=== PATIENT | male | born 1980 | race Caucasian/White ===

== ENCOUNTER 2018-07-06 09:11 | Inpatient (IN) | payer MEDICAID ==
[~2018-07-06] VITALS: Ht 154.9 cm; Wt 90.0 kg
[2018-07-06] MEDS ORDERED: SOD CHLORIDE 0.9% 1,000 ML IV STA (09:31)
[2018-07-06] MEDS ORDERED: KETOROLAC 30 MG INJ IV STA (09:31)
[2018-07-06] MEDS ORDERED: ONDANSETRON 4 MG INJ IV STA (09:31)
--- NOTE | 2018-07-06 12:14 | NUR ---
Procedure Ordered: CT ABD/PELV WITH IV CONTRAST Reason for Exam Today: ABD PAIN Previous Exams: Allergies: NKA Current Medications Taken: Glucophage ( ) Metformin ( ) Previous reaction to contrast media: Yes ( ) No ( ) : Yes ( ) No (X ) Asthma: Yes ( ) No ( X) Diabetes: Yes ( ) No (X ) Myeloma: Yes ( ) No ( X) Heart Disease: Yes ( ) No ( X) Cardiac Disease: Yes ( ) No (X ) Kidney Disease: Yes ( ) No (X ) Vascular Disease: Yes ( ) No (X ) Patient Teaching done: Yes ( ) No ( ) Epic Beacon Analyst Used: Yes ( ) No ( ) Name of Epic Beacon Analyst: Language Used: As part of the test requested by your doctor, contrast media may be injected into your vein while the x-rays are being taken. Occasionally, reactions from IV contrast may occur. The physician and staff of this hospital are trained to treat these reactions. Select the type of Contrast that will be given to patient: Isovue 300 ( ) Isovue 370 ( ) Visipaque ( ) Cystografin ( ) Gastrographin ( ) Redi-cat ( ) Volumen ( ) Amount of contrast to be given: [id number]: 100CC IV IV ( ) PO ( ) Date given: 07.06.17 Lab Values: BUN: 9 Creatinine: 0.63 Reason why contrast cannot be given: Location of patient pre-procedure: ED2 Location of patient post procedure: ED2
[2018-07-06] MEDS ORDERED: SOD CHLORIDE 0.9% 100 ML ONE (12:16)
[2018-07-06] MEDS ORDERED: IOHEXOL 300MG/ML 150 ML BTL ONE (12:16)
[2018-07-06] MEDS ORDERED: morphine 4 MG/ML VIAL IV STA (12:58)
[2018-07-06] MEDS ORDERED: PIPER-TAZO 3.375 GM IV (PMX) 100 ML IVPB ONE (13:00)
--- NOTE | 2018-07-06 13:03 | EN ---
Date/Time of Note Date/Time of Note DATE: 07/06/18 TIME: 13:02 ER Progress Note Patient seen in conjunction with CRESENCIO Porter. On exam, patient has right upper quadrant tenderness and a Chicas sign but is hemodynamically stable. Patient has appropriate bowel sounds with no peritoneal findings other than the right upper quadrant. Diagnostic tests were appreciated. Medications including pain medication and antibiotics and fluids were ordered. Consultations: Hospitalist was notified for admission. Surgical consultation was obtained. Disposition: Patient will be admitted to a medical surgical bed for cholecystitis and a small bowel obstruction. MIGEUL ROMERO Jul 06, 2018 13:03
--- NOTE | 2018-07-06 13:50 | NUR ---
NOTIFIED PATIENT ABT PATIENTS ADMISSION FOR ADMITTING ORDERS.
--- NOTE | 2018-07-06 13:55 | ERD ---
ER Documentation Chief Complaint Chief Complaint ap since last night HPI 38-year-old male presenting with abdominal pain times 1 day. Patient was seen yesterday all of you and told he had gallstones however pain is worsened and continued. He has had no vomiting but nausea. Last bowel movement was yesterday. He has some mild chest pain. He denies taking any medications for symptoms. Denies medical problems. NKDA. Surgical history denies. Social history denies ROS All systems reviewed and are negative except as per history of present illness. Allergies Allergies: Coded Allergies: No Known Allergy (Unverified , 07/06/18) PMhx/Soc Hx Alcohol Use: Yes (socially) Hx Substance Use: No Hx Tobacco Use: No Smoking Status: Never smoker FmHx Family History: No diabetes, No coronary disease, No other Physical Exam Vitals Vital Signs Date Temp Pulse Resp B/P (MAP) Pulse Ox O2 O2 Flow FiO2 Time Delivery Rate 07/06/18 98.1 61 18 160/79 99 09:18 (106) Physical Exam GENERAL: The patient is well-appearing, well-nourished, in no acute distress CHEST: Clear to auscultation bilaterally. There are no rales, wheezes or rhonchi. HEART: Regular rate and rhythm. No murmurs, clicks, rubs or gallops. No S3 or S4. ABDOMEN: Mildly distended abdomen tenderness to palpation in epigastric region. No distention. No organomegaly. No rebound tenderness. BACK: No midline or flank tenderness. Result Diagram: 07/06/18 0951 07/06/18 0951 Results 24 hrs Laboratory Tests Test 07/06/18 09:50 07/06/18 09:51 Urine Color YELLOW Urine Clarity CLEAR Urine pH 7.0 Urine Specific [place] 1.015 Urine Ketones NEGATIVE mg/dL Urine Nitrite NEGATIVE mg/dL Urine Bilirubin NEGATIVE mg/dL Urine Urobilinogen NEGATIVE mg/dL Urine Leukocyte Esterase 1+ Estefani/ul Urine Microscopic RBC 1 /HPF Urine Microscopic WBC 1 /HPF Urine Hemoglobin NEGATIVE mg/dL Urine Glucose NEGATIVE mg/dL Urine Total Protein NEGATIVE mg/dl White Blood Count 13.8 10^3/ul Red Blood Count 4.79 10^6/ul Hemoglobin 15.2 g/dl Hematocrit 44.8 % Mean Corpuscular Volume 93.5 fl Mean Corpuscular Hemoglobin 31.7 pg Mean Corpuscular Hemoglobin Concent 33.9 g/dl Red Cell Distribution Width 11.9 % Platelet Count 313 10^3/UL Mean Platelet Volume 9.1 fl Immature Granulocytes % 0.500 % Neutrophils % 78.9 % Lymphocytes % 13.3 % Monocytes % 6.3 % Eosinophils % 0.4 % Basophils % 0.6 % Nucleated Red Blood Cells % 0.0 /100WBC Immature Granulocytes # 0.070 10^3/ul Neutrophils # 10.9 10^3/ul Lymphocytes # 1.8 10^3/ul Monocytes # 0.9 10^3/ul Eosinophils # 0.1 10^3/ul Basophils # 0.1 10^3/ul Nucleated Red Blood Cells # 0.0 10^3/ul Sodium Level 139 mmol/L Potassium Level 3.9 mmol/L Chloride Level 98 mmol/L Carbon Dioxide Level 27 mmol/L Anion Gap 14 Blood Urea Nitrogen 9 mg/dl Creatinine 0.63 mg/dl Est Glomerular Filtrat Rate mL/min > 60 mL/min Glucose Level 128 mg/dl Calcium Level 9.9 mg/dl Total Bilirubin 0.2 mg/dl Direct Bilirubin 0.00 mg/dl Indirect Bilirubin 0.2 mg/dl Aspartate Amino Transf (AST/SGOT) 38 IU/L Alanine Aminotransferase (ALT/SGPT) 28 IU/L Alkaline Phosphatase 102 IU/L Total Protein 8.9 g/dl Albumin 4.9 g/dl Globulin 4.00 g/dl Albumin/Globulin Ratio 1.22 Lipase 283 U/L Current Medications Medications Dose Sig/Dana Start Time Status Last (Trade) Ordered Route PRN Stop Time Admin Dose Reason Admin Sodium 1,000 ml @ Q1H STAT 07/06/18 DC 07/06/18 Chloride 1,000 mls/hr IV 09:31 07/06/18 09:43 10:30 Ondansetron 4 mg ONCE STAT 07/06/18 DC 07/06/18 HCl (Zofran IV 09:31 07/06/18 09:43 Inj) 09:33 Ketorolac 30 mg ONCE STAT 07/06/18 DC 07/06/18 Tromethamine IV 09:31 07/06/18 09:43 (Toradol) 09:33 IV Flush 10 ml STK-MED 07/06/18 DC 07/06/18 (NS 10 ml) ONCE .ROUTE 12:16 07/06/18 12:27 12:17 Sodium 100 ml @ ud STK-MED 07/06/18 DC 07/06/18 Chloride ONCE .ROUTE 12:16 07/06/18 12:30 12:17 Iohexol 150 ml STK-MED 07/06/18 DC 07/06/18 (Omnipaque ONCE .ROUTE 12:16 07/06/18 12:30 300mg/ ml) 12:17 Piperacillin 100 ml @ ONCE ONCE 07/06/18 DC Sod/ 200 mls/hr IVPB 13:00 07/06/18 Tazobactam 13:29 Sod Morphine 4 mg ONCE STAT 07/06/18 DC Sulfate IV 12:58 07/06/18 (morphine) 12:59 Procedures/MDM DIAGNOSTIC IMAGING REPORT Patient: MARIAA BEAUCHAMP : 1980 Age: 38 Sex: M MR #: [id number] DOS: 07/06/18 0931 Ordering MD: SHAW SALAZAR PA-C Location: [facility] Room/Bed: PROCEDURE: CT Abdomen and pelvis with contrast. CLINICAL INDICATION: Abdominal pain TECHNIQUE: CT scan of the abdomen and pelvis with contrast was performed on a multidetector high-resolution CT scan. The patient was scanned following the u ncomplicated intravenous administration of 100 ml Omnipaque-300. Coronal and sagittal reformatted images were obtained from the axial source images. Standard CT of the abdomen pelvis with contrast protocols were performed. The total exam CTDI equals 19.32 mGy and the total exam DLP equals 1187.92 mGy- cm. One or more of the following dose reduction techniques were used: - Automated exposure control. - Adjustment of the mA and/or kV according to patient size. Use of iterative reconstruction technique. Dicom images are available COMPARISON: None. FINDINGS: Mild dilated fluid-filled loops of mid to proximal small bowel with mild wall thickening and enhancement extending into the left mid to lower abdomen with more normal caliber distal small bowel the exact transition zone not fully demonstrated consistent with mild partial mid to distal small bowel obstruction and enteritis. There diverticular changes of the transverse descending and proximal sigmoid colon but no CT evidence of diverticulitis. Remainder the colon is unremarkable. Small bowel and appendix unremarkable. No evidence of intra-abdominal free air, free fluid, abscesses or lymphadenopathy. Kidneys normal in size without calcified calculi or hydronephrosis bilaterally. In the lateral mid to inferior right kidney is a 1.7 cm cyst. No other intra renal masses bilaterally. No ureteral calcified calculi or dilatation. Distended otherwise unremarkable urinary bladder. Prostate unremarkable. The gallbladder is distended with multiple gallstones and mild gallbladder wall thickening. No biliary ductal dilation. Recommend clinical correlation and consideration of a right upper quadrant abdominal ultrasound. Diffuse hepatic fatty infiltration. No focal hepatic lesions. Spleen pancreas and adrenal glands unremarkable. Bilateral fat containing inguinal hernias without herniated bowel or strangul ation. Aorta unremarkable. Minimal dextrorotoscoliosis of the lower thoracic lumbar spine. No acute osseous findings or osteoblastic/osteolytic lesions. IMPRESSION: 1. Mild dilated fluid-filled loops of mid to proximal small bowel with mild wall thickening and enhancement extending into the left mid to lower abdomen with more normal-caliber distal small bowel exact transition zone not fully d emonstrated consistent with mild partial mid to distal small bowel obstruction and enteritis. 2. Diverticulosis of the transverse, descending and proximal sigmoid colon without CT evidence of diverticulitis. Unremarkable appendix. 3. Multiple gallstones and gallbladder wall thickening but no biliary ductal dilation demonstrated. Recommend clinical correlation and consideration of right upper quadrant abdominal ultrasound. 4. Right renal cyst. 5. Hepatic fatty infiltration. 6. Bilateral fat containing inguinal hernias without herniated bowel or strangulation. DIAGNOSTIC IMAGING REPORT Patient: MARIAA BEAUCHAMP : 1980 Age: 38 Sex: M MR #: [id number] DOS: 07/06/18 0931 Ordering MD: SHAW SALAZAR PA-C Location: [facility] Room/Bed: PROCEDURE: US Abdomen Right Upper Quadrant. CLINICAL INDICATION: Abdominal pain TECHNIQUE: Multiple real-time longitudinal and transverse images were acquired of the patient's right upper quadrant abdomen utilizing a curved array transducer. COMPARISON: None FINDINGS: Liver: The liver is normal in size with the sagittal diameter right lobe me asuring 15.5 cm. The liver appears moderately diffusely echogenic with no discrete focal lesion evident. There is normal directional flow of the main portal vein. Gallbladder: A 1.8 cm in maximal diameter sludge ball is identified within the gallbladder lumen. A 1.5 cm gallstone appears to be lodged within the gallbladder neck. Smaller stones are seen in the gallbladder lumen. The gallbladder wall is mildly thickened to 4.2 mm. Bile ducts: There is no significant intra or extrahepatic bile duct dilatation. No choledocholiths are seen within the visualized portions. The common bile duct measures 4.7 mm in cross diameter. Pancreas: The pancreas is largely obscured by bowel gas. Right kidney: Normal in echotexture and in size. The right kidney measures 11.7 cm in length. No mass, pathological calcification, or hydronephrosis is evident. Peritoneum: There is no free intraperitoneal fluid IMPRESSION: 1. There is cholelithiasis and a sludge ball is seen within the gallbladder l umen. The gallbladder wall is mildly thickened to 4.2 mm. Clinical correlation is indicated to exclude cholelithiasis. No bile duct dilatation is evident with the common bile duct measuring 4.7 mm in cross diameter. 2. The pancreas is obscured by bowel gas. 3. Normal sized diffusely fatty infiltrated liver with no focal lesion. 4. Normal appearing right kidney. 5. No free intraperitoneal fluid is evident. ER Course: 1 L normal saline, Toradol, morphine, Zosyn given in ED. Dr. Hoang evaluated patient at bedside given patient did have findings consistent with cholecystitis and SBO. Patient was stable and is transferred to [place] for admission. MDM: 38-year-old male presenting with abdominal pain. Patient's abdominal exam is concerning for cholecystitis and bowel obstruction. Patient is admitted for surgical consultation and higher level of care. Patient is admitted for high l evel care and is stable at the time of admission. All questions answered at time of admission. LASHAWN SALAZAR PA-C Jul 06, 2018 13:55
[2018-07-06 13:57] VITALS: BP 154/96; PULSE 77; RESP 20
[2018-07-06 13:59] VITALS: Ht 154.9 cm; Wt 90.0 kg
[2018-07-06] MEDS ORDERED: NACL 0.9% 3 ML SYG IV SCH (14:00)
[2018-07-06] MEDS ORDERED: MAGNESIUM HYDROXIDE 30ML CUP PO PRN (14:00)
[2018-07-06] MEDS ORDERED: hydrALAzine 20 MG INJ IV PRN (14:00)
[2018-07-06] MEDS ORDERED: ACETAMINOPHEN 325 MG TAB PO PRN (14:00)
[2018-07-06] MEDS ORDERED: ALBUTEROL/IPRATROPIUM (NEB) 3 ML AMP HHN PRN (14:00)
[2018-07-06] MEDS ORDERED: LORAZEPAM 2 MG INJ IV PRN (14:00)
[2018-07-06] MEDS ORDERED: NITROGLYCERIN (SL) 0.4 MG TAB SL PRN (14:00)
[2018-07-06] MEDS ORDERED: DOCUSATE SODIUM 100 MG CAP PO PRN (14:00)
[2018-07-06] MEDS ORDERED: ONDANSETRON 4 MG INJ IV PRN (14:00)
[2018-07-06] MEDS ORDERED: morphine 2 MG INJ IV PRN (14:00)
--- NOTE | 2018-07-06 14:15 | NUR ---
SPOKED WITH BRIGIDA WITH DR NAVARRO OFFICE AND INFO WAS GIVEN ABT THE CONSULTATION ORDER.
[2018-07-06] MEDS: SOD CHLORIDE 0.9% 1,000 ML IV SCH ×2 (14:20→23:30)
[2018-07-06] MEDS ORDERED: ACET500C5 PO (14:31)
[2018-07-06] MEDS: morphine SULFATE/PF (2 MG/2 ML) SYG IV PRN ×2 (14:51→21:13)
--- NOTE | 2018-07-06 15:25 | HP ---
Date/Time of Note Date/Time of Note DATE: 07/06/18 TIME: 15:19 Assessment/Plan VTE Prophylaxis SCD applied (from Nsg): No SCD contraindicated: other Pharmacological prophylaxis: heparin Lines/Catheters IV Catheter Type (from Nrsg): Peripheral IV Assessment/Plan Hospital Course Assessment and plan: 38-year-old male presenting with abdominal pain nausea vomiting with signs of SBO and cholecystitis #Abdominal pain: Likely secondary to combination of cholecystitis and SBO. Currently patient has not had any surgeries before. -Admit the patient, keep n.p.o. -Follow-up recommendations from the surgery team. Check TSH A1c lipid panel, continue IV fluids, pain control medications as needed, antiemetics -If distention worsens or pain worsens consider NG tube placement # GI ppx -PPI Result Diagram: 07/06/18 0951 07/06/18 0951 Results 24hrs Laboratory Tests Test 07/06/18 09:50 07/06/18 09:51 Prothrombin Time 12.6 Prothrombin Time Ratio 1.0 INR International Normalized Ratio 0.93 Activated Partial Thromboplast Time 33.7 Urine Color YELLOW Urine Clarity CLEAR Urine pH 7.0 Urine Specific [place] 1.015 Urine Ketones NEGATIVE Urine Nitrite NEGATIVE Urine Bilirubin NEGATIVE Urine Urobilinogen NEGATIVE Urine Leukocyte Esterase 1+ H Urine Microscopic RBC 1 Urine Microscopic WBC 1 Urine Hemoglobin NEGATIVE Urine Glucose NEGATIVE Urine Total Protein NEGATIVE Free Thyroxine 1.05 White Blood Count 13.8 H Red Blood Count 4.79 Hemoglobin 15.2 Hematocrit 44.8 Mean Corpuscular Volume 93.5 Mean Corpuscular Hemoglobin 31.7 Mean Corpuscular Hemoglobin Concent 33.9 Red Cell Distribution Width 11.9 Platelet Count 313 Mean Platelet Volume 9.1 Immature Granulocytes % 0.500 H Neutrophils % 78.9 H Lymphocytes % 13.3 L Monocytes % 6.3 Eosinophils % 0.4 Basophils % 0.6 Nucleated Red Blood Cells % 0.0 Immature Granulocytes # 0.070 H Neutrophils # 10.9 H Lymphocytes # 1.8 Monocytes # 0.9 Eosinophils # 0.1 Basophils # 0.1 Nucleated Red Blood Cells # 0.0 Sodium Level 139 Potassium Level 3.9 Chloride Level 98 Carbon Dioxide Level 27 Anion Gap 14 H Blood Urea Nitrogen 9 Creatinine 0.63 Est Glomerular Filtrat Rate mL/min > 60 Glucose Level 128 Calcium Level 9.9 Total Bilirubin 0.2 Direct Bilirubin 0.00 Indirect Bilirubin 0.2 Aspartate Amino Transf (AST/SGOT) 38 Alanine Aminotransferase (ALT/SGPT) 28 Alkaline Phosphatase 102 Total Protein 8.9 H Albumin 4.9 Globulin 4.00 H Albumin/Globulin Ratio 1.22 Lipase 283 HPI/ROS Admit Date/Time Admit Date/Time Jul 06, 2018 at 13:04 Hx of Present Illness 38-year-old male with no significant past medical history who presents with abdo melquiades pain. He states this pain has been going on for the last 3-4 days. He also had 2 days of nonbilious nonbloody vomiting symptoms as well as nausea. No upper or lower GI bleeding, no fevers or chills, no diarrhea constipation, no chest pain or shortness of breath. When he came in today he had imaging study performed, including a CT abdomen pelvis which showed: Mild dilated fluid-filled loops of mid to proximal small bowel with mild wall thickening and enhancement extending into the left mid to lower abdomen with more normal-caliber distal small bowel exact transition zone not fully demonstrated consistent with mild partial mid to distal small bowel obstruction and enteritis. Positive gallstones and gallbladder wall thickening also found. Patient also had a right upper quadrant ultrasound which showed:,cholelithiasis and a sludge ball is seen within the gallbladder lumen -signs of possible cholecystitis. I call was made out to the surgeon to come evaluate the patient as well. PMH/Family/Social Past Medical History Medical History: no pertinent history Medications Current Medications IV Flush (NS 3 ml) 3 ml PER PROTOCOL IV ; Start 07/06/18 at 14:00 Ondansetron HCl (Zofran Inj) 4 mg Q6H PRN IV NAUSEA AND/OR VOMITING; Start 07/06/18 at 14:00 Acetaminophen (Tylenol Tab) 650 mg Q6H PRN PO PAIN LEVEL 1-3 OR FEVER; Start 07/06/18 at 14:00 Acetaminophen/ Hydrocodone Bitart ([place] (5/325)) 1 tab Q6H PRN PO MODERATE PAIN LEVEL 4-6; Start 07/06/18 at 14:00 Docusate Sodium (Colace) 100 mg Q12H PRN PO CONSTIPATION; Start 07/06/18 at 14:00 Magnesium Hydroxide (Milk Of Mag) 30 ml DAILY PRN PO CONSTIPATION; Start 07/06/18 at 14:00 Lorazepam (Ativan) 0.5 mg Q6H PRN IV ANXIETY; Start 07/06/18 at 14:00 Sodium Chloride 1,000 ml @ 100 mls/hr Q10H IV Last administered on 07/06/18at 14:20; Admin Dose 100 MLS/HR; Start 07/06/18 at 13:49 Albuterol/ Ipratropium (Duoneb) 3 ml Q4H RESP THERAPY PRN HHN SHORTNESS OF BREATH; Start 07/06/18 at 14:00 Hydralazine HCl (Apresoline) 10 mg Q6H PRN IV ELEVATED BLOOD PRESSURE; Start 07/06/18 at 14:00 Nitroglycerin (Nitroglycerin (Sl Tab) 0.4 Mg) 1 tab Q5M PRN SL ANGINA; Start 07/06/18 at 14:00 Morphine Sulfate (morphine SULFATE (PF)) 2 mg Q4H PRN IV SEVERE PAIN LEVEL 7-10 Last administered on 07/06/18at 14:51; Admin Dose 2 MG; Start 07/06/18 at 14:30 Coded Allergies: No Known Allergy (Unverified , 07/06/18) Past Surgical History Past Surgical Hx: no surgical history Family History Significant Family History: no pertinent family hx Social History Alcohol Use: occasionally Smoking Status: Never smoker Drug Use: none Exam/Review of Systems Vital Signs Vitals Vital Signs Date Temp Pulse Resp B/P (MAP) Pulse Ox O2 O2 Flow FiO2 Time Delivery Rate 07/06/18 98.7 77 20 154/96 97 Room Air 13:57 (115) Exam Exam GENERAL: Lying in bed, alert, in mild distress HEENT: Pupils equal round reactive light, extraocular muscles are intact NECK: Supple CHEST: Clear to auscultation bilaterally. There are no rales, wheezes or rhonchi. HEART: Regular rate and rhythm. No murmurs, clicks, rubs or gallops. No S3 or S4. ABDOMEN: Mildly distended abdomen tenderness to palpation in epigastric region. No distention. No organomegaly. No rebound tenderness. M/S: No lower extremity edema bilaterally Neurologic: No focal deficits LUCIA VYAS Jul 06, 2018 15:25
[2018-07-06] MEDS ORDERED: PANTOPRAZOLE (EC) 40 MG TAB PO ONE (15:30)
--- NOTE | 2018-07-06 15:30 | NUR ---
COMPLETED ADMISSION ASSESSMENT.PATIENT WAS INSTRUCTED NPO EXCEPT MEDICATIONS.
--- NOTE | 2018-07-06 16:33 | NUR ---
ENDORSEMENT Report received at bedside from Ashley SCHULTE. Care board updated. Pt NPO and awaiting for Dr. Morales consult. Bed in lowest position and call light within reach.
--- NOTE | 2018-07-06 18:56 | NUR ---
END OF SHIFT NOTE Pt complains of abdominal pain Morphine IV given for pain by Ashley. Pt NPO except meds. Ambulates to toilet to void without assist. Steady on his feet. Urinal at bedside also. Bed in lowest position and call light within reach.
[2018-07-06 19:43] VITALS: BP 149/87; PULSE 82; RESP 18
--- NOTE | 2018-07-06 23:00 | NUR ---
Patient reported he is willing to wait for Dr. Morales to speak to him re: possibility of having surgery, not requesting diet modification anymore since IV fluid order has already been changed. Assured constant nursing staff availability and assistance. Needs assisted.
--- NOTE | 2018-07-07 00:22 | CONS ---
Date/Time of Note Date/Time of Note DATE: 07/07/18 TIME: 00:17 Assessment/Plan Assessment/Plan Assessment/Plan 8-year-old male presents with abdominal pain 3-4 days, nonbilious vomiting. Patient noted to have gallstones versus sludge in gallbladder with mild gallbladder wall thickening. LFTs normal no evidence of common bile duct stone or dilated common bile duct. Patient also noted to have findings on CT consistent with partial SBO with dilated fluid-filled mild thickening of proximal small bowel loops. Patient has no prior surgery and no reason for SBO possibility of SBO secondary to inflammation from gallbladder but this is somewhat unlikely. His LFTs are normal and only mild support for cholecystitis by ultrasound and CT we will obtain HIDA scan to assess for acute cholecystitis. In the meantime if patient has worsening dyspepsia or nausea will recommend insertion of NG tube bowel rest keeping patient n.p.o. and IV fluids. Surgery will follow. Result Diagram: 07/06/18 0951 07/06/18 0951 Results 24hrs Laboratory Tests Test 07/06/18 09:50 07/06/18 09:51 Prothrombin Time 12.6 Prothrombin Time Ratio 1.0 INR International Normalized Ratio 0.93 Activated Partial Thromboplast Time 33.7 Urine Color YELLOW Urine Clarity CLEAR Urine pH 7.0 Urine Specific [place] 1.015 Urine Ketones NEGATIVE Urine Nitrite NEGATIVE Urine Bilirubin NEGATIVE Urine Urobilinogen NEGATIVE Urine Leukocyte Esterase 1+ H Urine Microscopic RBC 1 Urine Microscopic WBC 1 Urine Hemoglobin NEGATIVE Urine Glucose NEGATIVE Urine Total Protein NEGATIVE Free Thyroxine 1.05 White Blood Count 13.8 H Red Blood Count 4.79 Hemoglobin 15.2 Hematocrit 44.8 Mean Corpuscular Volume 93.5 Mean Corpuscular Hemoglobin 31.7 Mean Corpuscular Hemoglobin Concent 33.9 Red Cell Distribution Width 11.9 Platelet Count 313 Mean Platelet Volume 9.1 Immature Granulocytes % 0.500 H Neutrophils % 78.9 H Lymphocytes % 13.3 L Monocytes % 6.3 Eosinophils % 0.4 Basophils % 0.6 Nucleated Red Blood Cells % 0.0 Immature Granulocytes # 0.070 H Neutrophils # 10.9 H Lymphocytes # 1.8 Monocytes # 0.9 Eosinophils # 0.1 Basophils # 0.1 Nucleated Red Blood Cells # 0.0 Sodium Level 139 Potassium Level 3.9 Chloride Level 98 Carbon Dioxide Level 27 Anion Gap 14 H Blood Urea Nitrogen 9 Creatinine 0.63 Est Glomerular Filtrat Rate mL/min > 60 Glucose Level 128 Calcium Level 9.9 Total Bilirubin 0.2 Direct Bilirubin 0.00 Indirect Bilirubin 0.2 Aspartate Amino Transf (AST/SGOT) 38 Alanine Aminotransferase (ALT/SGPT) 28 Alkaline Phosphatase 102 Total Protein 8.9 H Albumin 4.9 Globulin 4.00 H Albumin/Globulin Ratio 1.22 Lipase 283 Consultation Date/Type/Reason Admit Date/Time Jul 06, 2018 at 13:04 Date of Consultation: Jul 06, 2018 Type of Consult Surgical consult Reason for Consultation Abdominal pain, nausea vomiting SBO possible cholecystitis Requesting Provider: LUCIA VYAS Hx of Present Illness 38-year-old male who presented to the emergency room with 3-4-day history of increasing abdominal pain and 2-day history of nonbilious vomiting. Patient denies any similar symptoms to this in the past. Patient denies any past surgical history. On presentation to the emergency room patient presented with symptoms as noted above denied any fever chills. No other close contacts have been sick recently. Patient denies any diarrhea. On evaluation in the emergency room CAT scan and ultrasound were obtained which showed gallstones versus sludge of the gallbladder with mild gallbladder wall thickening. Of note there was also noted some moderately thickened dilated small bowel loops with transition point in the mid small bowel without obvious focal transition point. LFTs normal WBC 13,000 Past Medical History Medical History: no pertinent history Medications Current Medications IV Flush (NS 3 ml) 3 ml PER PROTOCOL IV ; Start 07/06/18 at 14:00 Ondansetron HCl (Zofran Inj) 4 mg Q6H PRN IV NAUSEA AND/OR VOMITING; Start 07/06/18 at 14:00 Acetaminophen (Tylenol Tab) 650 mg Q6H PRN PO PAIN LEVEL 1-3 OR FEVER; Start 07/06/18 at 14:00 Acetaminophen/ Hydrocodone Bitart ([place] (5/325)) 1 tab Q6H PRN PO MODERATE PAIN LEVEL 4-6; Start 07/06/18 at 14:00 Docusate Sodium (Colace) 100 mg Q12H PRN PO CONSTIPATION; Start 07/06/18 at 14:00 Magnesium Hydroxide (Milk Of Mag) 30 ml DAILY PRN PO CONSTIPATION; Start 07/06/18 at 14:00 Lorazepam (Ativan) 0.5 mg Q6H PRN IV ANXIETY; Start 07/06/18 at 14:00 Sodium Chloride 1,000 ml @ 100 mls/hr Q10H IV Last administered on 07/06/18at 14:20; Admin Dose 100 MLS/HR; Start 07/06/18 at 13:49 Albuterol/ Ipratropium (Duoneb) 3 ml Q4H RESP THERAPY PRN HHN SHORTNESS OF BREATH; Start 07/06/18 at 14:00 Hydralazine HCl (Apresoline) 10 mg Q6H PRN IV ELEVATED BLOOD PRESSURE; Start 07/06/18 at 14:00 Nitroglycerin (Nitroglycerin (Sl Tab) 0.4 Mg) 1 tab Q5M PRN SL ANGINA; Start 07/06/18 at 14:00 Morphine Sulfate (morphine SULFATE (PF)) 2 mg Q4H PRN IV SEVERE PAIN LEVEL 7-10 Last administered on 07/06/18at 21:13; Admin Dose 2 MG; Start 07/06/18 at 14:30 Allergies: Coded Allergies: No Known Allergy (Unverified , 07/06/18) Past Surgical History Past Surgical Hx: no surgical history Social History Alcohol Use: occasionally Smoking Status: Never smoker Drug Use: none Exam/Review of Systems Vital Signs Vitals Vital Signs Date Temp Pulse Resp B/P (MAP) Pulse Ox O2 O2 Flow FiO2 Time Delivery Rate 07/06/18 98.8 82 18 149/87 96 Room Air 19:43 (107) Intake and Output 07/06/18 07/06/18 07/07/18 1515:00 23:00 07:00 IntakeIntake Total 300 ml BalanceBalance 300 ml Exam Gastrointestinal: soft, nl liver, spleen, non-tender, ascites, bowel sounds, distended, firm, hepatomegaly, mass, rebound or guarding, splenomegaly, surgical scars, tender, other (Obese) Medications Medications Current Medications IV Flush (NS 3 ml) 3 ml PER PROTOCOL IV ; Start 07/06/18 at 14:00 Ondansetron HCl (Zofran Inj) 4 mg Q6H PRN IV NAUSEA AND/OR VOMITING; Start 07/06/18 at 14:00 Acetaminophen (Tylenol Tab) 650 mg Q6H PRN PO PAIN LEVEL 1-3 OR FEVER; Start 07/06/18 at 14:00 Acetaminophen/ Hydrocodone Bitart ([place] (5/325)) 1 tab Q6H PRN PO MODERATE PAIN LEVEL 4-6; Start 07/06/18 at 14:00 Docusate Sodium (Colace) 100 mg Q12H PRN PO CONSTIPATION; Start 07/06/18 at 14:00 Magnesium Hydroxide (Milk Of Mag) 30 ml DAILY PRN PO CONSTIPATION; Start 07/06/18 at 14:00 Lorazepam (Ativan) 0.5 mg Q6H PRN IV ANXIETY; Start 07/06/18 at 14:00 Sodium Chloride 1,000 ml @ 100 mls/hr Q10H IV Last administered on 07/06/18at 14:20; Admin Dose 100 MLS/HR; Start 07/06/18 at 13:49 Albuterol/ Ipratropium (Duoneb) 3 ml Q4H RESP THERAPY PRN HHN SHORTNESS OF BREATH; Start 07/06/18 at 14:00 Hydralazine HCl (Apresoline) 10 mg Q6H PRN IV ELEVATED BLOOD PRESSURE; Start 07/06/18 at 14:00 Nitroglycerin (Nitroglycerin (Sl Tab) 0.4 Mg) 1 tab Q5M PRN SL ANGINA; Start 07/06/18 at 14:00 Morphine Sulfate (morphine SULFATE (PF)) 2 mg Q4H PRN IV SEVERE PAIN LEVEL 7-10 Last administered on 07/06/18at 21:13; Admin Dose 2 MG; Start 07/06/18 at 14:30 EDD NAVARRO MD Jul 07, 2018 00:22
[2018-07-07] MEDS: SOD CHLORIDE 0.9% 1,000 ML IV SCH ×2 (00:57→09:52)
[2018-07-07] MEDS: morphine SULFATE/PF (2 MG/2 ML) SYG IV PRN ×2 (01:09→05:34)
[2018-07-07 02:00] VITALS: BP 142/75; PULSE 78; RESP 18
--- NOTE | 2018-07-07 04:55 | NUR ---
END OF SHIFT: PT REMAINS ALERT AND ORIENTED THIS SHIFT. PT STILL NPO FOR SBO AND SBD PAIN. PT CONT TO HAVE MORPHINE ORDERED. DR. NAVARRO CAME LATE LAST NIGHT AND WANTED TO KEEP PT NPO FOR HIDA SCAN FOR TODAY, WILL CONT PLAN OF CARE FOR PT.
[2018-07-07 07:33] VITALS: BP 125/78; PULSE 77; RESP 18
--- NOTE | 2018-07-07 10:00 | NUR ---
LEFT TO NUCLEAR MED FOR HIDA SCAN
--- NOTE | 2018-07-07 12:00 | NUR ---
BACK FROM NUCLEAR MED AND FFUP SCAN SCHEDULED AT 1400
[2018-07-07 14:01] VITALS: BP 136/88; PULSE 83; RESP 20
--- NOTE | 2018-07-07 14:48 | PN ---
Date/Time of Note Date/Time of Note DATE: 07/07/18 TIME: 14:46 Assessment/Plan VTE Prophylaxis Risk score (from Ns)>0 risk: 1 SCD applied (from Nsg): Yes Pharmacological prophylaxis: other Lines/Catheters IV Catheter Type (from Nrsg): Peripheral IV Assessment/Plan Hospital Course S: Patient still n.p.o., presently getting the second portion of his HIDA scan performed. Seen by surgery team earlier. Per nursing staff patient is passing gas. O: VS - see below PE: -Unable to be performed presently because the patient is off the floor at procedure Assessment and plan: 38-year-old male presenting with abdominal pain nausea vomiting with signs of SBO and possible cholecystitis. #Abdominal pain: Likely secondary to combination of possible cholecystitis and SBO. Currently patient has not had any surgeries before. Appreciate surgery consult -For now continue to keep n.p.o. -Follow-up results of the HIDA scan. Follow-up surgery recommendations. - continue IV fluids, pain control medications as needed, antiemetics -If distention worsens or pain worsens consider NG tube placement # GI ppx -PPI Result Diagram: 07/07/18 0434 07/07/18 0434 Results 24hrs Laboratory Tests Test 07/07/18 04:34 White Blood Count 9.0 # Red Blood Count 4.36 L Hemoglobin 14.1 Hematocrit 40.7 L Mean Corpuscular Volume 93.3 Mean Corpuscular Hemoglobin 32.3 Mean Corpuscular Hemoglobin Concent 34.6 Red Cell Distribution Width 12.0 Platelet Count 301 Mean Platelet Volume 9.2 Immature Granulocytes % 0.400 Neutrophils % 75.7 Lymphocytes % 12.7 L Monocytes % 9.1 Eosinophils % 1.4 Basophils % 0.7 Nucleated Red Blood Cells % 0.0 Immature Granulocytes # 0.040 H Neutrophils # 6.8 Lymphocytes # 1.1 Monocytes # 0.8 Eosinophils # 0.1 Basophils # 0.1 Nucleated Red Blood Cells # 0.0 Sodium Level 137 Potassium Level 3.9 Chloride Level 99 Carbon Dioxide Level 29 Anion Gap 9 # Blood Urea Nitrogen 9 Creatinine 0.71 Est Glomerular Filtrat Rate mL/min > 60 Glucose Level 103 Hemoglobin A1c 5.8 Calcium Level 9.0 Phosphorus Level 4.1 Magnesium Level 2.1 Triglycerides Level 172 H Cholesterol Level 224 H LDL Cholesterol, Calculated 142 HDL Cholesterol 48 Cholesterol/HDL Ratio 4.6 Thyroid Stimulating Hormone (TSH) 1.130 Exam/Review of Systems Vital Signs Vitals Vital Signs Date Temp Pulse Resp B/P (MAP) Pulse Ox O2 O2 Flow FiO2 Time Delivery Rate 07/07/18 98.5 83 20 136/88 95 14:01 (104) 07/07/18 Room Air 07:33 Intake and Output 07/06/18 07/06/18 07/07/18 1515:00 23:00 07:00 IntakeIntake Total 300 ml 1100 ml OutputOutput Total 850 ml BalanceBalance 300 ml 250 ml Medications Medications Current Medications IV Flush (NS 3 ml) 3 ml PER PROTOCOL IV ; Start 07/06/18 at 14:00 Ondansetron HCl (Zofran Inj) 4 mg Q6H PRN IV NAUSEA AND/OR VOMITING; Start 07/06/18 at 14:00 Acetaminophen (Tylenol Tab) 650 mg Q6H PRN PO PAIN LEVEL 1-3 OR FEVER; Start 07/06/18 at 14:00 Acetaminophen/ Hydrocodone Bitart ([place] (5/325)) 1 tab Q6H PRN PO MODERATE PAIN LEVEL 4-6; Start 07/06/18 at 14:00 Docusate Sodium (Colace) 100 mg Q12H PRN PO CONSTIPATION; Start 07/06/18 at 14:00 Magnesium Hydroxide (Milk Of Mag) 30 ml DAILY PRN PO CONSTIPATION; Start 07/06/18 at 14:00 Lorazepam (Ativan) 0.5 mg Q6H PRN IV ANXIETY; Start 07/06/18 at 14:00 Sodium Chloride 1,000 ml @ 100 mls/hr Q10H IV Last administered on 07/07/18at 09:52; Admin Dose 100 MLS/HR; Start 07/06/18 at 13:49 Albuterol/ Ipratropium (Duoneb) 3 ml Q4H RESP THERAPY PRN HHN SHORTNESS OF BREATH; Start 07/06/18 at 14:00 Hydralazine HCl (Apresoline) 10 mg Q6H PRN IV ELEVATED BLOOD PRESSURE; Start 07/06/18 at 14:00 Nitroglycerin (Nitroglycerin (Sl Tab) 0.4 Mg) 1 tab Q5M PRN SL ANGINA; Start 07/06/18 at 14:00 Morphine Sulfate (morphine SULFATE (PF)) 2 mg Q4H PRN IV SEVERE PAIN LEVEL 7-10 Last administered on 07/07/18at 05:34; Admin Dose 2 MG; Start 07/06/18 at 14:30 LUCIA VYAS Jul 07, 2018 14:48
--- NOTE | 2018-07-07 15:15 | NUR ---
2ND SCAN COMPLETED.
--- NOTE | 2018-07-07 16:17 | NUR ---
EOSS: AA,ORIENTED X4 ,PT SPEAKS [place] ONLY.MAINTAINED ON NPO EXCEPT MEDS.PATIENT PAIN SCALED 1-3/10 AND PREFERS NOT TO TAKE PAIN MEDICATIONS.NO REPORT OF NAUSEA,VOMITING NOTED,+ FLATUS.PT TO CONT WITH TREATMENT PLAN.
[2018-07-07 19:10] VITALS: BP 151/98; PULSE 93; RESP 20
--- NOTE | 2018-07-07 20:15 | NUR ---
Dr. Werner notified patient is upset and is demanding to speak to a doctor. As per patient he has been waiting all day for day Hospitalist to come and see him since he has alot of queries and concerns re: explanation of all his test results for this admission, plan for surgery, request for diet modification and his medical management. instructed he won't come to speak to patient and RN needs to contact Dr. Fisher through [employer] danii. theatre director also made aware.
--- NOTE | 2018-07-07 21:15 | NUR ---
Dr. Fisher called back RN -and also spoke to the patient over the speakerphone. METAL NEUTRALIZER interpreted communications in Persian @bedside. Inquiries answered by physician but instructed RN to call the surgeon tonight with regard to patient's request if current diet can be modified and for explanation of all imaging test result done in-patient including HIDA scan. Wants to be able to drink some liquids at least if surgeon doesn't plan to do surgery. MD explained to patient he came twice to see the patient today but patient was off-unit for tests. Telephone order made by MD for modification of current IV fluid order; will initiate once patient is done having a shower tonight. [employer] hcm consultant made aware.
[2018-07-07] MEDS ORDERED: LORAZEPAM 4 MG/ML VIAL IV PRN (22:00)
[2018-07-07] MEDS ORDERED: DEXTROSE 5%-0.45% NACL 1,000 ML IV SCH (22:00)
[2018-07-08] VITALS (21 sets, daily range): BP systolic 111–145; BP diastolic 64–90; PULSE 82–104; RESP 11–21
[2018-07-08] MEDS: morphine SULFATE/PF (2 MG/2 ML) SYG IV PRN (00:58)
--- NOTE | 2018-07-08 02:45 | PN ---
Date/Time of Note Date/Time of Note DATE: 07/08/18 TIME: 02:42 Subjective Surgical progress note Objective Vitals Vital Signs Date Temp Pulse Resp B/P (MAP) Pulse Ox O2 O2 Flow FiO2 Time Delivery Rate 07/07/18 97.9 93 20 151/98 96 19:10 (115) 07/07/18 Room Air 07:33 Intake and Output 07/07/18 07/07/18 07/08/18 1515:00 23:00 07:00 IntakeIntake Total 600 ml 220 ml OutputOutput Total 300 ml 600 ml BalanceBalance 300 ml -380 ml Patient with moderate tenderness right upper quadrant positive Chicas sign consistent with acute cholecystitis Results Result Diagram: 07/07/18 0434 07/07/18 0434 Imaging HIDA scan performed today shows nonvisualization of the gallbladder after 80 minutes consistent with acute cholecystitis Medications Medications Current Medications IV Flush (NS 3 ml) 3 ml PER PROTOCOL IV ; Start 07/06/18 at 14:00 Ondansetron HCl (Zofran Inj) 4 mg Q6H PRN IV NAUSEA AND/OR VOMITING; Start 07/06/18 at 14:00 Acetaminophen (Tylenol Tab) 650 mg Q6H PRN PO PAIN LEVEL 1-3 OR FEVER; Start 07/06/18 at 14:00 Acetaminophen/ Hydrocodone Bitart ([place] (5/325)) 1 tab Q6H PRN PO MODERATE PAIN LEVEL 4-6; Start 07/06/18 at 14:00 Docusate Sodium (Colace) 100 mg Q12H PRN PO CONSTIPATION; Start 07/06/18 at 14:00 Magnesium Hydroxide (Milk Of Mag) 30 ml DAILY PRN PO CONSTIPATION; Start 07/06/18 at 14:00 Albuterol/ Ipratropium (Duoneb) 3 ml Q4H RESP THERAPY PRN HHN SHORTNESS OF BREATH; Start 07/06/18 at 14:00 Hydralazine HCl (Apresoline) 10 mg Q6H PRN IV ELEVATED BLOOD PRESSURE; Start 07/06/18 at 14:00 Nitroglycerin (Nitroglycerin (Sl Tab) 0.4 Mg) 1 tab Q5M PRN SL ANGINA; Start 07/06/18 at 14:00 Morphine Sulfate (morphine SULFATE (PF)) 2 mg Q4H PRN IV SEVERE PAIN LEVEL 7-10 Last administered on 1/5/19at 00:58; Admin Dose 2 MG; Start 07/06/18 at 14:30 Dextrose/Sodium Chloride 1,000 ml @ 75 mls/hr [id number] IV Last administered on 07/07/18 21:51; Admin Dose 75 MLS/HR; Start 07/07/18 at 22:00 Lorazepam (Ativan) 0.5 mg Q6H PRN IV ANXIETY Last administered on 07/07/18 22:08; Admin Dose 0.5 MG; Start 07/07/18 at 22:00 VTE Prophylaxis Risk score (from Ns)>0 risk: 1 SCD applied (from [facility] [place]): Yes Lines/Catheters IV Catheter Type: Peripheral IV [place] in Place: No Assessment/Plan Hospital Course 38-year-old male who presented to the emergency room with 3-4-day history of increasing abdominal pain and 2-day history of nonbilious vomiting. Patient denies any similar symptoms to this in the past. Patient denies any past surgical history. On presentation to the emergency room patient presented with symptoms as noted above denied any fever chills. No other close contacts have been sick recently. Patient denies any diarrhea. On evaluation in the emergency room CAT scan and ultrasound were obtained which showed gallstones versus sludge of the gallbladder with mild gallbladder wall thickening. Of note there was also noted some moderately thickened dilated small bowel loops with transition point in the mid small bowel without obvious focal transition point. LFTs normal WBC 13,000 Assessment/Plan Acute cholecystitis without evidence of common duct obstruction 2. Partial small bowel obstruction etiology unclear possibly from inflammatory process of the gallbladder Plan recommendation for patient to undergo laparoscopic cholecystectomy as the primary cause of the patient's symptoms into the gallbladder. The partial small bowel obstruction may be secondary to adhesions were secondary to involvement of the gallbladder but do not think that the cholecystitis will resolve without surgical intervention. Details of the procedure was moves all fours were discussed patient agrees to proceed we will keep patient n.p.o. until tomorrow EDD NAVARRO MD Jul 08, 2018 02:45
--- NOTE | 2018-07-08 02:51 | NUR ---
Dr. Morales came this shift to speak to patient in his room. with instruction for RN to secure consent form for surgery: laparoscopic cholecystectomy, possible open. Patient signed document which was placed on his chart.
--- NOTE | 2018-07-08 06:13 | NUR ---
RN EOSS NOTES: Patient observed to be very anxious this shift, episodes relieved by Lorazepam PRN IV as well as time spent in room by nursing staff so he can vent his emotions. Appreciates Dr. Fisher speaking to him over the phone and Dr. Morales coming to see him this shift with discussion of planned surgery. Kept NPO, ordered IV fluid infusion maintained as per MD's order and IV Morphine PRN administered for pain with good relief. Needs assisted.
[2018-07-08] MEDS ORDERED: SEVOFLURANE 15 MIN ONE (07:00)
[2018-07-08] MEDS ORDERED: CEFAZOLIN 1 GM INJ ONE (07:00)
--- NOTE | 2018-07-08 09:10 | NUR ---
APPLIED ARM BAND FOR NO BLOOD PRODUCTS DUE TO PATIENTS DECISION NO BLOOD TRANSFUSIONS,VERIFIED AGAIN WITH RN JEFFERSON BALDWIN TODAY.
--- NOTE | 2018-07-08 09:15 | NUR ---
PATIENT ALERT AND ORIENTED. VITALS STABLE. IV SITE RIGHT FORE ARM IS INTACT AND IV FLUID ON FLOW. ALL SAFETY PRECAUTIONS MAINTAINED SUCH BED IN THE LOWEST POSITION, ALARMS ON, BRAKES ON ,CALL LIGHT WITHIN REACH. RECEIVED CALL FROM OR REGARDING THE PATIENT AND COLLECTING HIM FOR CHOLECYSTECTOMY. . PATIENT CONSENTED FOR PROCEDURE. TRANSPORT ENVIRONMENTAL FIELD PROFESSIONAL PATIENT AT 0910.
[2018-07-08] MEDS ORDERED: MIDAZOLAM 1 MG/ML 2 ML INJ ONE (09:49)
[2018-07-08] MEDS ORDERED: ROPIVACAINE 0.5 % 30 ML VIAL ONE (09:49)
[2018-07-08] MEDS ORDERED: ROCURONIUM 50 MG INJ ONE (09:49)
[2018-07-08] MEDS ORDERED: PROPOFOL 20 ML ONE (09:49)
--- NOTE | 2018-07-08 10:01 | PREAC ---
Date/Time of Note Date/Time of Note DATE: 07/08/18 TIME: 09:59 Anesthesia Eval and Record Evaluation Time Pre-Procedure Interview DATE: 07/08/18 TIME: 09:59 Age 38 Sex male NPO: 8 hrs Preoperative diagnosis Cholelithiasis Planned procedure Laparoscopic Cholecystectomy Past Medical History Past Medical History: None Surgery & Anesthesia Issues No known issue Meds Anticoagulation: No Beta Joe within 24 hr: No Reason Beta Joe not given: Pt. not on B-Joe Reported Medications Acetaminophen* (Tylophen*) 500 Mg Capsule, 500 MG PO Q6H PRN for PAIN, TAB 07/06/18 Current Medications IV Flush (NS 3 ml) 3 ml PER PROTOCOL IV ; Start 07/06/18 at 14:00 Ondansetron HCl (Zofran Inj) 4 mg Q6H PRN IV NAUSEA AND/OR VOMITING; Start 07/06/18 at 14:00 Acetaminophen (Tylenol Tab) 650 mg Q6H PRN PO PAIN LEVEL 1-3 OR FEVER; Start 07/06/18 at 14:00 Acetaminophen/ Hydrocodone Bitart ([place] (5/325)) 1 tab Q6H PRN PO MODERATE PAIN LEVEL 4-6; Start 07/06/18 at 14:00 Docusate Sodium (Colace) 100 mg Q12H PRN PO CONSTIPATION; Start 07/06/18 at 14:00 Magnesium Hydroxide (Milk Of Mag) 30 ml DAILY PRN PO CONSTIPATION; Start 07/06/18 at 14:00 Albuterol/ Ipratropium (Duoneb) 3 ml Q4H RESP THERAPY PRN HHN SHORTNESS OF BREATH; Start 07/06/18 at 14:00 Hydralazine HCl (Apresoline) 10 mg Q6H PRN IV ELEVATED BLOOD PRESSURE; Start 07/06/18 at 14:00 Nitroglycerin (Nitroglycerin (Sl Tab) 0.4 Mg) 1 tab Q5M PRN SL ANGINA; Start 07/06/18 at 14:00 Morphine Sulfate (morphine SULFATE (PF)) 2 mg Q4H PRN IV SEVERE PAIN LEVEL 7-10 Last administered on 07/08/18at 00:58; Admin Dose 2 MG; Start 07/06/18 at 14:30 Dextrose/Sodium Chloride 1,000 ml @ 75 mls/hr [id number] IV Last administered on 07/07/18at 21:51; Admin Dose 75 MLS/HR; Start 07/07/18 at 22:00 Lorazepam (Ativan) 0.5 mg Q6H PRN IV ANXIETY Last administered on 07/07/18at 22:08; Admin Dose 0.5 MG; Start 07/07/18 at 22:00 Meds reviewed: Yes Allergies Coded Allergies: No Known Allergy (Unverified , 07/06/18) Allergies Reviewed: Yes Labs/Studies Labs Reviewed: Reviewed by anesthesiologist Result Diagram: 07/08/18 0436 07/08/18 0436 Laboratory Tests 07/08/18 04:36 test: N/A Studies: ECG (n/a), CXR (n/a) Pre-procedure Exam Last vitals Vital Signs Date Temp Pulse Resp B/P (MAP) Pulse Ox O2 O2 Flow FiO2 Time Delivery Rate 07/08/18 98.9 83 18 126/81 96 07:51 (96) 07/08/18 Room Air 02:35 Airway: Adequate mouth opening, Adequate thyromental dist Mallampati: Mallampati II Teeth: Normal Lung: Normal Heart: Normal ASA Physical Status ASA physical status: 2 Emergency: None Planned Anesthetic General/MAC: ETT Nerve block: TAP (bilateral) Planned Pain Management Single shot nerve block, Parenteral pain med Pre-operative Attestations Prior to commencing anesthesia and surgery, the patient was re-evaluated, there was verification of: *The patient's identity *The results of appropriate recent lab work and preoperative vital signs *The above evaluation not changing prior to induction *Anesthetic plan, risk benefits, alternative and complications discussed with patient/family; questions answered; patient/family understands, accepts and wishes to proceed. VAN WILD MD Jul 08, 2018 10:01
[2018-07-08] MEDS ORDERED: BUPIVACAINE 0.5%/EPI (SDV) 30 ML INJ ONE (10:27)
[2018-07-08] MEDS ORDERED: EPHEDrine SULFATE 50 MG/5 ML SYG IV PRN (10:30)
[2018-07-08] MEDS ORDERED: METOCLOPRAMIDE 10 MG INJ IV PRN (10:30)
[2018-07-08] MEDS ORDERED: MEPERIDINE 25 MG INJ IV PRN (10:30)
[2018-07-08] MEDS ORDERED: OXYCODONE/ACETAMINOPHEN (5/325) TAB PO PRN (10:30)
[2018-07-08] MEDS ORDERED: LABETALOL HCL 20MG INJ IV PRN (10:30)
[2018-07-08] MEDS ORDERED: DIPHENHYDRAMINE 50 MG INJ IV PRN (10:30)
[2018-07-08] MEDS ORDERED: ONDANSETRON 4 MG INJ IV PRN ×2 (10:30→12:30)
[2018-07-08] MEDS ORDERED: FENTAnyl 50 MCG/ML VIAL IV PRN ×3 (10:30)
[2018-07-08] MEDS ORDERED: HYDROmorphONE 1 MG/5 ML IV SYRINGE IV PRN ×3 (10:30)
[2018-07-08] MEDS ORDERED: hydrALAzine 20 MG INJ IV PRN (10:30)
[2018-07-08] MEDS ORDERED: DEXAMETHASONE 4 MG/ML 5 ML INJ ONE (10:41)
[2018-07-08] MEDS ORDERED: ONDANSETRON 4 MG INJ ONE (10:41)
[2018-07-08] MEDS ORDERED: METOCLOPRAMIDE 10 MG INJ ONE (10:41)
[2018-07-08] MEDS ORDERED: KETOROLAC 30 MG INJ ONE (10:42)
[2018-07-08] MEDS ORDERED: GLYCOPYRROLATE 1 MG INJ ONE (11:24)
[2018-07-08] MEDS ORDERED: NEOSTIGMINE 3 MG/3 ML SYRINGE ONE (11:24)
[2018-07-08] MEDS ORDERED: SUGAMMADEX SODIUM 200 MG/2 ML VIAL IV ONE (11:58)
--- NOTE | 2018-07-08 12:04 | NUR ---
RECEIVED RESPONSIVE COUGHING ON AND OF, BREATHING WITH EASE. ABDOMINAL INCISIONS X 4 SITES CLEAR WITH DERMABOND INTACT. DENIES PAIN AT THIS TIME.
--- NOTE | 2018-07-08 12:07 | PN ---
Date/Time of Note Date/Time of Note DATE: 07/08/18 TIME: 12:06 Assessment/Plan VTE Prophylaxis Risk score (from Ns)>0 risk: 2 SCD applied (from Nsg): Yes Pharmacological prophylaxis: other Lines/Catheters IV Catheter Type (from Nrsg): Peripheral IV Urinary Cath still in place: No Assessment/Plan Hospital Course S: Patient seen by surgery team earlier this morning, presently getting g allbladder surgery performed O: VS - see below PE: -Unable to be performed presently because the patient is off the floor at procedure Assessment and plan: 38-year-old male presenting with abdominal pain nausea vomiting with signs of SBO and possible cholecystitis. #Abdominal pain: Likely secondary to combination of possible cholecystitis and SBO. Currently patient has not had any surgeries before. Appreciate surgery consult -For now continue to keep n.p.o., again at surgical procedure now, follow-up postop recommendations -Follow-up surgery recommendations. - continue IV fluids, pain control medications as needed, antiemetics # GI ppx -PPI Result Diagram: 07/08/186 07/08/18 0436 Results 24hrs Laboratory Tests Test 07/08/18 04:36 White Blood Count 10.9 #H Red Blood Count 4.58 L Hemoglobin 14.7 Hematocrit 42.3 Mean Corpuscular Volume 92.4 Mean Corpuscular Hemoglobin 32.1 Mean Corpuscular Hemoglobin Concent 34.8 Red Cell Distribution Width 12.0 Platelet Count 292 Mean Platelet Volume 9.3 Immature Granulocytes % 0.400 Neutrophils % 72.9 Lymphocytes % 15.0 Monocytes % 9.4 Eosinophils % 1.7 Basophils % 0.6 Nucleated Red Blood Cells % 0.0 Immature Granulocytes # 0.040 H Neutrophils # 7.9 H Lymphocytes # 1.6 Monocytes # 1.0 H Eosinophils # 0.2 Basophils # 0.1 Nucleated Red Blood Cells # 0.0 Sodium Level 138 Potassium Level 4.2 Chloride Level 101 Carbon Dioxide Level 29 Anion Gap 8 Blood Urea Nitrogen 11 Creatinine 0.74 Est Glomerular Filtrat Rate mL/min > 60 Glucose Level 117 Calcium Level 9.5 Exam/Review of Systems Vital Signs Vitals Vital Signs Date Temp Pulse Resp B/P (MAP) Pulse Ox O2 O2 Flow FiO2 Time Delivery Rate 07/08/18 98.9 83 18 126/81 96 07:51 (96) 07/08/18 Room Air 02:35 Intake and Output 07/07/18 07/07/18 07/08/18 1515:00 23:00 07:00 IntakeIntake Total 600 ml 220 ml 600 ml OutputOutput Total 300 ml 600 ml BalanceBalance 300 ml -380 ml 600 ml Medications Medications Current Medications IV Flush (NS 3 ml) 3 ml PER PROTOCOL IV ; Start 07/06/18 at 14:00 Ondansetron HCl (Zofran Inj) 4 mg Q6H PRN IV NAUSEA AND/OR VOMITING; Start 07/06/18 at 14:00 Acetaminophen (Tylenol Tab) 650 mg Q6H PRN PO PAIN LEVEL 1-3 OR FEVER; Start 07/06/18 at 14:00 Acetaminophen/ Hydrocodone Bitart ([place] (5/325)) 1 tab Q6H PRN PO MODERATE PAIN LEVEL 4-6; Start 07/06/18 at 14:00 Docusate Sodium (Colace) 100 mg Q12H PRN PO CONSTIPATION; Start 07/06/18 at 14:00 Magnesium Hydroxide (Milk Of Mag) 30 ml DAILY PRN PO CONSTIPATION; Start 07/06/18 at 14:00 Albuterol/ Ipratropium (Duoneb) 3 ml Q4H RESP THERAPY PRN HHN SHORTNESS OF REI ATH; Start 07/06/18 at 14:00 Hydralazine HCl (Apresoline) 10 mg Q6H PRN IV ELEVATED BLOOD PRESSURE; Start 07/06/18 at 14:00 Nitroglycerin (Nitroglycerin (Sl Tab) 0.4 Mg) 1 tab Q5M PRN SL ANGINA; Start 07/06/18 at 14:00 Morphine Sulfate (morphine SULFATE (PF)) 2 mg Q4H PRN IV SEVERE PAIN LEVEL 7-10 Last administered on 07/08/18at 00:58; Admin Dose 2 MG; Start 07/06/18 at 14:30 Dextrose/Sodium Chloride 1,000 ml @ 75 mls/hr [id number] IV Last administered on 07/07/18at 21:51; Admin Dose 75 MLS/HR; Start 07/07/18 at 22:00 Lorazepam (Ativan) 0.5 mg Q6H PRN IV ANXIETY Last administered on 07/07/18at 22:08; Admin Dose 0.5 MG; Start 07/07/18 at 22:00 Hydromorphone HCl (Dilaudid) 0.2 mg PACU PRN IV MILD PAIN LEVEL 1-3; Start 07/08/18 at 10:30; Stop 07/08/18 at 14:30 Hydromorphone HCl (Dilaudid) 0.4 mg PACU PRN IV MODERATE PAIN LEVEL 4-6; Start 07/08/18 at 10:30; Stop 07/08/18 at 14:30 Hydromorphone HCl (Dilaudid) 0.6 mg PACU PRN IV SEVERE PAIN LEVEL 7-10; Start 07/08/18 at 10:30; Stop 07/08/18 at 14:30 Fentanyl (Sublimaze) 25 mcg PACU ORDER PRN IV MILD PAIN LEVEL 1-3; Start 07/08/18 at 10:30; Stop 07/08/18 at 14:30 Fentanyl (Sublimaze) 50 mcg PACU ORDER PRN IV MODERATE PAIN LEVEL 4-6; Start 07/08/18 at 10:30; Stop 07/08/18 at 14:30 Fentanyl (Sublimaze) 75 mcg PACU ORDER PRN IV SEVERE PAIN LEVEL 7-10; Start 07/08/18 at 10:30; Stop 07/08/18 at 14:30 Oxycodone/ Acetaminophen (Percocet (5/ 325)) 1 tab PACU ORDER PRN PO PAIN LEVEL 1-5; Start 07/08/18 at 10:30; Stop 07/08/18 at 14:30 Ondansetron HCl (Zofran Inj) 4 mg PACU ORDER PRN IV NAUSEA AND/OR VOMITING; Start 07/08/18 at 10:30; Stop 07/08/18 at 14:30 Metoclopramide HCl (Reglan) 10 mg PACU ORDER PRN IV NAUSEA AND/OR VOMITING; Start 07/08/18 at 10:30; Stop 07/08/18 at 14:30 Labetalol HCl (Labetalol) 5 mg PACU ORDER PRN IV ELEVATED BLOOD PRESSURE; Start 07/08/18 at 10:30; Stop 07/08/18 at 14:30 Hydralazine HCl (Apresoline) 5 mg PACU ORDER PRN IV ELEVATED BLOOD PRESSURE; Start 07/08/18 at 10:30; Stop 07/08/18 at 14:30 Ephedrine Sulfate 5 mg PACU ORDER PRN IV BLOOD PRESSURE SUPPORT; Start 07/08/18 at 10:30; Stop 07/08/18 at 14:30 Meperidine HCl (Demerol) 25 mg PACU ORDER PRN IV POST OPERATIVE SHIVERING; Start 07/08/18 at 10:30; Stop 07/08/18 at 14:30 Diphenhydramine HCl (Benadryl) 25 mg PACU ORDER PRN IV PRURITUS; Start 07/08/18 at 10:30; Stop 07/08/18 at 14:30 LUCIA VYAS Jul 08, 2018 12:07
--- NOTE | 2018-07-08 12:08 | PAC ---
Date/Time of Note Date/Time of Note DATE: 07/08/18 TIME: 12:07 Post-Anesthesia Notes Post-Anesthesia Note Last documented vital signs Vital Signs Date Temp Pulse Resp B/P (MAP) Pulse Ox O2 O2 Flow FiO2 Time Delivery Rate 07/08/18 98.9 83 18 126/81 96 07:51 (96) 07/08/18 99.6 98 16 120/67 98 Room Air 02:35 (88) Activity: WNL Respiratory function: WNL Cardiovascular function: WNL Mental status: Baseline Pain reasonably controlled: Yes Hydration appropriate: Yes Nausea/Vomiting absent: Yes VAN WILD MD Jul 08, 2018 12:08
[2018-07-08] MEDS: D5W-0.45 NACL + KCL 20 MEQ 1,000 ML IV SCH (12:09)
--- NOTE | 2018-07-08 12:09 | OPR ---
Date/Time of Note Date/Time of Note DATE: 07/08/18 TIME: 12:02 Operative Report Free Text/Dictation Operative report Procedure Date: Jul 08, 2018 Preoperative Diagnosis 1)Acute cholecystitis 2) partial small bowel obstruction Postoperative Diagnosis Same Operation/Procedure Performed Laparoscopic cholecystectomy Surgeon Walt Morales MD see signature line Rv Body Mechanic None Anesthesia Type: general Anesthesiologist: VAN WILD MD Estimated Blood Loss: 10 - 50 ml's Transfusion none Specimen Gallbladder Grafts/Implants none Tubes/Drains None Complications none Pt Condition Post Procedure: stable Disposition: PACU Indications Severe abdominal pain consistent with acute cholecystitis and partial SBO Procedure Description Patient brought to the operating placed supine position general she is administered with entry intubation patient prepped draped in sterile fashion orogastric tube inserted by anesthesia a tap block was performed by anesthesia prior to beginning of the procedure. A timeout was completed in standard. A varies needle was used left upper quadrant Elkins's point insufflation delivered to maintain pneumoperitoneum at 15 mmHg throughout the procedure. Small stab incision was made in the upper aspect of the umbilicus and a 5 mm trocar was inserted under direct visualization with a 30 degree 5 mm lapa roscope. The Veress needle was removed under direct visualization epigastric 11 mm trocar and 2 right-sided 5 mm trochars were inserted next the gallbladder was markedly thickened and distended in order to facilitate grasping the gallbladder and a cholecystostomy was performed with hook cautery and aspirating the white bile to decompress the gallbladder and the fundus of gallbladder was grasped and lifted up over the edge of the right lobe of the liver a Cecilio's arm retractor was then used to hold the retractor in place. There was marked thickening throughout the body neck of the gallbladder and there was some adherence of the bowel up to this gentle blunt dissection with suction irrigation and endoscopic peanuts were used to dissect the bowel off the neck of the gallbladder. The lymph node was large and stripped away and hemostasis controlled with monopolar cautery the cystic duct was encountered first after seeing a critical view and the triangle of Cinthya was defined. The cystic duct was skeletonized and 2 clips were placed on the patient's eye when the gallbladder side and then divided similar fashion cystic artery was identified double clipped proximally 1 distally and then divided there was some oozing around the liver bed which was controlled with monopolar cautery the gallbladder was carefully taken off the liver bed of the capsule was tore somewhat because of the marked inflammation of the lip of the gallbladder. The gallbladder was placed off to the side as we dressed hemostasis of the liver bed. This was controlled with monopolar cautery as well as 5 cc of FloSeal with excellent result. An endoscopic specimen bag was inserted and the gallbladder placed and this was brought through the epigastric wound because of the very large gallstone the incision had to be enlarged and slightly the gallstone was extricated from the gallbladder with a ring clamp. The wound was protected with the specimen bag. Final inspection showed good hemostasis the operative field was irrigated and aspirated until clear the fascia incision of the epigastric wound was closed with a needle close device. Pneumoperitoneum was allowed to escape the trochars were removed skin incision closed with 4-0 Monocryl and Dermabond for dressing. Patient was asked to the operative brought recovery in stable condition. Counts were correct x2. No complications. WALT MORALES MD Jul 08, 2018 12:09
[2018-07-08] MEDS ORDERED: DIPHENHYDRAMINE 25 MG CAP PO PRN (12:30)
[2018-07-08] MEDS ORDERED: IBUPROFEN 600 MG TAB PO PRN (12:30)
[2018-07-08] MEDS ORDERED: ACETAMINOPHEN 325 MG TAB PO PRN (12:30)
--- NOTE | 2018-07-08 12:38 | NUR ---
STARTED NEW IV ACCESS ON LEFT HAND WITH G 20 BY Chalino GREGORY RN. STABLE. MEDICATED FOR SHIVERING, GOOD RESULT.
--- NOTE | 2018-07-08 13:18 | NUR ---
DOZING ON AND OFF, ON 2LPM/NC BREATHING WITH EASE. DENIES PAIN, NO S/S BLEEDING. REPORT TO JEFFERSON BALDWIN RN. TRANSFERRED TO ROOM IN STABLE CONDITION.
--- NOTE | 2018-07-08 13:30 | NUR ---
RECEIVED PATIENT REPORT FROM ELECTRONICS COMMODITY MANAGERFRANCA BUCK AT 1320. RECEIVED THE PATIENT TO UNIT AT THIS TIME S/P LAP CHOLECYSTECTOMY. PATIENT IS ALERT ,ORIENTED, VERBAL. VITALS STABLE ON ADMISSION, IV SITE ON LEFT FOREARM IS INTACT AND P[ATENT WITH IVFLUID ON FLOW. STARTED WITH ICE CHIPS . ON CARB CONTROLLED LOW FAT LOW CHOLESTEROL DIET. PATIENT SURGICAL SITE ON THE ABDOMINAL AREA WITH FIVE LAPROSCOPIC INCISIONS COVERED WITH DERMA BAND. NO COMPLAINTS OF PAIN . ON OXYGEN 2 LITRES VIA NC. LL SDAFETY PRECAUTIONS FOR PREVENTION OF FALLS AND INJURIES CONTINUED SUCH BED IN THE LOWEST POSITION, ALARMS ON, BRAKES ON, CALL LIGHT WITHIN REACH. ENCOURAGED TO USE CALL LIGHT . WILL CONTINUE TO MONITOR
[2018-07-08] MEDS: HYDROmorphONE 0.5 MG/0.5 ML SYG IV PRN (15:07)
[2018-07-08] MEDS: HYDROCODONE/APAP (5/325) TAB PO PRN (17:17)
--- NOTE | 2018-07-08 18:30 | NUR ---
PATIENT COMFORTABLE, VITALS STABLE. DIET TOLERATED . NO COMPLAINTS OF NAUSEA OR VOMITING. NO BLEEDING NOTED IN THE LAPROSCOPIC INCISIONS. IV FLUID CONTINUED. WILL CONTINUE TO MONITOR. PAIN MANAGEMENT WITHIN REACH. WILL CONTINUE TO MONITOR.
[2018-07-09 00:08] VITALS: BP 120/80; PULSE 105; RESP 20
[2018-07-09] MEDS: HYDROmorphONE 0.5 MG/0.5 ML SYG IV PRN ×2 (00:51→04:58)
[2018-07-09] MEDS: D5W-0.45 NACL + KCL 20 MEQ 1,000 ML IV SCH ×3 (03:25→17:52)
--- NOTE | 2018-07-09 06:36 | NUR ---
END OF SHIFT NOTE: AOX4, VVS. Given dilaudid for pain prn with good control. Pt is passing gas, Carb control diet, tolerating liquid for now and soft food slowly and pt feels full. NO c/o nausea. OOB with independently with supervision. Abdominal lap sites C/D/I. Call light within reach, low bed, safety precautions in place.
[2018-07-09] MEDS ORDERED: ENOXAPARIN 40 MG/0.4 ML SYG SC SCH (07:00)
[2018-07-09 07:06] VITALS: BP 105/70; PULSE 84; RESP 15
--- NOTE | 2018-07-09 11:00 | NUR ---
PATIENT COMFORTABLE. PAIN MANAGEMENT CONTINUED. IV SITE I INTACT AND PATENT . IV FLUID ON FLOW. DIET TOLERATED. ALL SAFETY PRECAUTIONS MAINTAINED SUCH BED IN THE LOWEST POSITION, ALARMS ON , BRAKES ON, WILL CONTINUE TO MONITOR
[2018-07-09 14:10] VITALS: BP 118/81; PULSE 80; RESP 16
--- NOTE | 2018-07-09 14:12 | PDOCDIS ---
Discharge Instructions CONDITION [id number] Patient Condition: [id number] Stable HOME CARE INSTRUCTIONS: [id number] Diet Instructions: Uxfld5m Low Fat /Cholesterol [id number] Special Diet: [id number] carb controlled cardiac diet ACTIVITY: [id number] Activity Restrictions: [id number] Slowly Increase Activity Rest between Activity Avoid heavy lifting [id number] Bathing Restrictions: Gnbsp8d Shower FOLLOW UP/APPOINTMENTS Follow-up Plan Please take your medications as prescribed, see your doctor in the clinic in the next 1 week. LUCIA VYAS Jul 09, 2018 14:12
[2018-07-09] MEDS ORDERED: HYDR-3601 PO (14:13)
--- NOTE | 2018-07-09 14:16 | DS ---
Date/Time of Note Date/Time of Note DATE: 07/09/18 TIME: 14:14 Discharge Summary Admission/Discharge Info Admit Date/Time Jul 06, 2018 at 13:04 Discharge Date/Time Discharge Diagnosis #Abdominal pain: Likely secondary to combination of possible cholecystitis and SBO. Status post lap scopic cholecystectomy. Patient Condition: Stable Procedures Date/Time of Note Date/Time of Note DATE: 07/08/18 TIME: 12:02 Operative Report Free Text/Dictation Operative report Procedure Date: Jul 08, 2018 Preoperative Diagnosis 1)Acute cholecystitis 2) partial small bowel obstruction Postoperative Diagnosis Same Operation/Procedure Performed Laparoscopic cholecystectomy Surgeon Walt Morales MD see signature line Hx of Present Illness 38-year-old male with no significant past medical history who presents with abdominal pain. He states this pain has been going on for the last 3-4 days. He also had 2 days of nonbilious nonbloody vomiting symptoms as well as nausea. No upper or lower GI bleeding, no fevers or chills, no diarrhea constipation, no chest pain or shortness of breath. When he came in today he had imaging study performed, including a CT abdomen pelvis which showed: Mild dilated fluid-filled loops of mid to proximal small bowel with mild wall thickening and enhancement extending into the left mid to lower abdomen with more normal-caliber distal small bowel exact transition zone not fully demonstrated consistent with mild partial mid to distal small bowel obstruction and enteritis. Positive gallstones and gallbladder wall thickening also found. Patient also had a right upper quadrant ultrasound which showed:,cholelithiasis and a sludge ball is seen within the gallbladder lumen -signs of possible cholecystitis. A call was made out to the surgeon to come evaluate the patient as well. Hospital Course The patient was admitted to medical surgical unit. Initially was treated conservatively for the findings of possible SBO and cholecystitis. He underwent HIDA scan as well. He was made n.p.o. and given IV fluids. Also given pain control medications. Given the results of the imaging studies including HIDA scan, the decision was made by the surgery team to operate on the patient. He underwent laparoscopic cholecystectomy. Patient tolerated the procedure well. Afterwards he was started on diet which was advanced from clears to soft to solid and patient appeared to tolerate this well. He was able to ambulate, tolerated p.o. diet. He had a slight increase in his white blood cell count on the day of discharge, but culture results were negative and he had no fevers, there was thought to be reactive secondary to the surgery. Once we get clearance from the surgery team, if that is successful, patient will be discharged home today in improved condition. See below for full list of discharge medications. Home Meds Active Scripts Hydrocodone Bit-Acetaminophen (Hydrocodone Bit-APAP) 5-325MG Tablet, 1 TAB PO Q6H PRN for MODERATE PAIN LEVEL 4-6, #14 TAB Prov:LISSETH VYASAudrey Smalls 07/09/18 Reported Medications Acetaminophen* (Tylophen*) 500 Mg Capsule, 500 MG PO Q6H PRN for PAIN, TAB 07/06/18 Follow-up Plan Please take your medications as prescribed, see your doctor in the clinic in the next 1 week. Primary Care Provider Care Physician No Primary Time spent on discharge: > 30 minutes Pending Labs Laboratory Tests Test 07/09/18 04:36 White Blood Count 15.4 10^3/ul (4.8-10.8) Red Blood Count 4.07 10^6/ul (4.70-6.10) Hemoglobin 13.2 g/dl (14.0-18.0) Hematocrit 37.8 % (42.0-52.0) Mean Corpuscular Volume 92.9 fl (82.0-101.0) Mean Corpuscular Hemoglobin 32.4 pg (29.0-33.0) Mean Corpuscular Hemoglobin Concent 34.9 g/dl (32.0-37.0) Red Cell Distribution Width 11.9 % (11.5-14.5) Platelet Count 314 10^3/UL (140-415) Mean Platelet Volume 9.4 fl (7.4-10.4) Immature Granulocytes % 0.500 % (0.001-0.429) Neutrophils % 80.4 % (39.0-77.0) Lymphocytes % 9.7 % (15.0-51.0) Monocytes % 9.2 % (0.0-11.0) Eosinophils % 0.1 % (0.0-7.0) Basophils % 0.1 % (0.0-2.0) Nucleated Red Blood Cells % 0.0 /100WBC (0.0-0.0) Immature Granulocytes # 0.070 10^3/ul (0.0-0.031) Neutrophils # 12.4 10^3/ul (1.6-7.5) Lymphocytes # 1.5 10^3/ul (0.8-2.9) Monocytes # 1.4 10^3/ul (0.3-0.9) Eosinophils # 0.0 10^3/ul (0.0-0.5) Basophils # 0.0 10^3/ul (0.0-0.1) Nucleated Red Blood Cells # 0.0 10^3/ul (0.0-0.0) Sodium Level 137 mmol/L (135-144) Potassium Level 4.3 mmol/L (3.5-5.1) Chloride Level 101 mmol/L (97-110) Carbon Dioxide Level 28 mmol/L (21-31) Anion Gap 8 (5-13) Blood Urea Nitrogen 11 mg/dl (7-20) Creatinine 0.71 mg/dl (0.61-1.24) Est Glomerular Filtrat Rate mL/min > 60 mL/min (>60) Glucose Level 125 mg/dl (70-220) Calcium Level 9.3 mg/dl (8.4-10.2) LUCIA VYAS Jul 09, 2018 14:16
[2018-07-09] MEDS: HYDROCODONE/APAP (5/325) TAB PO PRN (15:39)
--- NOTE | 2018-07-09 19:16 | NUR ---
PATIENT COMFORTABLE. VITALS STABLE. CONTINUED WITH PAIN MANAGEMENT SEEN BY DR VYAS AND RECEIVED DISCHARGE INSTRUCTIONS. INFORMED DR NAVARRO AND AND AGREED TO DISCHARGE AND FOLLOW UP IN TWO WEEKS . PATIENT GIVEN WITH DISCHARGE INSTRUCTIONS AND IV REMOVED CATHETER TIP INTACT. DRY DRESSING APPLIED. DISCHARGE SAFELY AT THIS TIME VIA WHEEL CHAIR BY VOLUNTEER.
== END 2018-07-09 19:05 | disposition home or self-care (01) | DRG 418 ==
LOC: FTE 09:11 → MS1 13:04
PROVIDERS: ADMIT Hospitalist; ATTEND Hospitalist
PROC: 0FT44ZZ Resection of Gallbladder, Percutaneous Endoscopic Approach (ICD-10-PCS; principal; 2018-07-08 10:00)
DX: K80.00 Calculus of gallbladder with acute cholecystitis without obstruction (principal); K56.609 Unspecified intestinal obstruction, unspecified as to partial versus complete obstruction
CPT/HCPCS: 36415; 74177; 76705; 78226; 80048; 80053; 80061; 81001; 83036; 83690; 83735; 84100; 84439; 84443; 85025; 85610; 85730; 88304; 96361; 96374; 96375; A9537; J0690; J1100; J1170; J1650; J1885; J2060; J2175; J2250; J2274; J2405; J2710; J2765; J2795; J3010; J3480; J7030; J7042; Q9967